=== PATIENT | female | born 1950 | race Caucasian/White ===

== ENCOUNTER → 2020-04-30 | Outpatient (CLI) | payer MEDICARE ==
[~2020-04-30] MED LIST: AMLO-150 PO; METF500T17 PO; SIMV20TA19 PO
[2020-04-30 12:40] LABS: ALANINE AMINOTRANSFERASE 20 U/L (12-78); ALBUMIN 4.1 g/dL (3.4-5.0); CALCIUM 8.9 mg/dL (8.5-10.1)
[2020-04-30 12:42] LABS: ALKALINE PHOSPHATASE 77 U/L (45-117); BILIRUBIN,TOTAL 0.5 mg/dL (0.2-1.0); CREATININE 0.66 mg/dL (0.55-1.02); TOTAL PROTEIN 7.4 g/dL (6.4-8.2)
[2020-04-30 12:53] LABS: CHLORIDE 109 mmol/L (98-107)
[2020-04-30 12:54] LABS: ANION GAP 5 mmol/L (5-15)
== END | disposition home or self-care (01) ==
LOC: STAR 11:05
PROVIDERS: ATTEND Orthopaedic Surgery
DX: Z01.812 Encounter for preprocedural laboratory examination (principal); Z20.828 Contact with and (suspected) exposure to other viral communicable diseases; M21.622 Bunionette of left foot; M21.621 Bunionette of right foot; R94.31 Abnormal electrocardiogram [ECG] [EKG]
CPT/HCPCS: 36415; 80053; 87635; 93005

== ENCOUNTER 2020-05-04 12:00 | Day surgery (SDC) | payer MEDICARE ==
[~2020-05-04] VITALS: Ht 165.1 cm; Wt 71.4 kg
[~2020-05-04 12:00] MED LIST changes: +KETOROLAC 30 MG/1 ML ONE
[2020-05-04] MEDS ORDERED: FENTANYL PF 100 MCG/2ML ONE ×2 (12:54→14:42)
[2020-05-04] MEDS ORDERED: MIDAZOLAM 1 MG/ML, 2ML ONE (12:55)
[2020-05-04] MEDS ORDERED: LIDOCAINE-MPF 2% ,5ML ONE (12:56)
[2020-05-04] MEDS ORDERED: LACTATED RINGERS 1,000 ML IV SCH (13:00)
[2020-05-04] MEDS ORDERED: CHLORHEXIDINE 15 ML UDC MM ONE (13:00)
[2020-05-04] MEDS ORDERED: ONDANSETRON 2MG/ML, 2ML ONE (14:29)
[2020-05-04] MEDS ORDERED: CEFAZOLIN 1,000 MG ONE (14:29)
[2020-05-04] MEDS ORDERED: PROPOFOL 10 MG/ML, 20ML ONE (14:29)
[2020-05-04] MEDS ORDERED: DEXAMETHASONE 4 MG/ML, 1ML ONE (14:29)
[2020-05-04] MEDS ORDERED: ACETAMINOPHEN 325 MG TABLET PO PRN (15:00)
[2020-05-04] MEDS ORDERED: PROMETHAZINE 25 MG/ML, 1ML IVPush PRN (15:00)
[2020-05-04] MEDS ORDERED: hydrALAzine 20 MG/ML, 1ML IV PRN (15:00)
[2020-05-04] MEDS ORDERED: OXYcodone 5 MG/5 ML ORAL.SOL UDC PO PRN (15:00)
[2020-05-04] MEDS ORDERED: ALBUTEROL SULFATE 2.5 MG/3 ML NPPB PRN (15:00)
[2020-05-04] MEDS ORDERED: FENTANYL PF 100 MCG/2ML IV PRN (15:00)
[2020-05-04] MEDS ORDERED: LIDOCAINE/PF 1%, 30ML ONE (15:41)
[2020-05-04] MEDS ORDERED: BUPIVACAINE/PF 0.5% ONE (15:41)
== END 2020-05-04 17:15 | disposition home or self-care (01) ==
LOC: OUT 12:00
PROVIDERS: ATTEND Orthopaedic Surgery
DX: M21.622 Bunionette of left foot (principal); M21.621 Bunionette of right foot; M19.072 Primary osteoarthritis, left ankle and foot; M19.071 Primary osteoarthritis, right ankle and foot; M20.12 Hallux valgus (acquired), left foot; M20.11 Hallux valgus (acquired), right foot; L84 Corns and callosities; M81.0 Age-related osteoporosis without current pathological fracture; I10 Essential (primary) hypertension; E11.9 Type 2 diabetes mellitus without complications; Z79.84 Long term (current) use of oral hypoglycemic drugs; Z79.899 Other long term (current) drug therapy; Z87.891 Personal history of nicotine dependence; Z82.49 Family history of ischemic heart disease and other diseases of the circulatory system
CPT/HCPCS: 28308; 28313; 82962; C1713; J0690; J1100; J1885; J2250; J2405; J2704; J3010; J7120